=== PATIENT | female | born 2000 | race Caucasian/White ===

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

== ENCOUNTER 2021-02-08 13:06 | Emergency (ER) | payer MEDICAID ==
[~2021-02-08] VITALS: Ht 165.1 cm; Wt 90.9 kg
[2021-02-08] MEDS ORDERED: PRD20T PO (13:26)
--- NOTE | 2021-02-08 13:27 | ED Integumentary General ---
General Chief Complaint: Skin/Wound Problems Stated Complaint: RASH Source: patient Exam Limitations: no limitations History of Present Illness Date Seen by Provider: Feb 08, 2021 Time Seen by Provider: 13:23 Initial Comments To ER with itching to the palms of her hands wrists and soles of her feet as well as to the axilla and groin. This began last night with itching but there was no visible rash until today. No GI symptoms such as nausea diarrhea or abdominal cramping no trouble breathing or cough no wheezing. No history of this. No exposure that is known to any new substance. Timing/Duration: just prior to arrival Severity: moderate Location: extremities Allergies and Home Medications Allergies Coded Allergies: No Known Drug Allergies (Unverified , 11/13/17) Patient Home Medication List Home Medication List Reviewed: Yes Ferrous Sulfate (Iron) 325 Mg Tablet, 325 MG PO DAILY, (Reported) Entered as Reported by: LATRICE GUARDADO on 11/13/17 170 Hydrocodone Bit/Acetaminophen (Lortab 5 Mg Tablet) 1 Tab Tab, 1 TAB PO Q4H PRN for PAIN-MODERATE Prescribed by: INDIRA ESCOTO on 11/16/17 1434 Ibuprofen (Ibu) 600 Mg Tablet, 600 MG PO Q6H PRN for PAIN-MILD Prescribed by: INDIRA ESCOTO on 11/16/17 1434 Prednisone (Prednisone) 20 Mg Tab, 40 MG PO DAILY Prescribed by: FUNMI GONZALES on 02/08/21 1326 Vit W-Ca,Fe,FA(<1 mg) ( Vitamins) 1 Each Tablet, 1 EACH PO DAILY, (Reported) Entered as Reported by: LATRICE GUARDADO on 11/13/17 1701 Review of Systems Review of Systems Constitutional: see HPI EENTM: see HPI Respiratory: no symptoms reported Cardiovascular: no symptoms reported Genitourinary: no symptoms reported Musculoskeletal: no symptoms reported Skin: see HPI Psychiatric/Neurological: No Symptoms Reported Endocrine: No Symptoms Reported Past Jsvulic-Lmpteb-Jwoydw Hx Immunizations Up To Date Tetanus Booster (TDap): Less than 5yrs PED Vaccines UTD: Yes Seasonal Allergies Seasonal Allergies: Yes Past Medical History Surgeries: No Respiratory: No Cardiac: No Neurological: No Female Reproductive Disorders: Denies Sexually Transmitted Disease: No HIV/AIDS: No Genitourinary: No Gastrointestinal: No Musculoskeletal: No Endocrine: No HEENT: No Loss of Vision: Denies Hearing Impairment: Denies Cancer: No Psychosocial: No Integumentary: No Blood Disorders: Yes (ANEMIA) Family Medical History Alzheimer's disease MATERNAL GRANDFATHER Dementia MATERNAL GRANDFATHER Physical Exam Vital Signs Capillary Refill : General Appearance: WD/WN, no apparent distress HEENT: PERRL/EOMI, normal ENT inspection, TMs normal, pharynx normal Neck: non-tender, full range of motion Respiratory: normal breath sounds, no respiratory distress, no accessory muscle use Gastrointestinal: normal bowel sounds, no pulsatile mass Neurologic/Psychiatric: alert, normal mood/affect, oriented x 3 Skin: normal color, warm/dry, other (urticarial rash to the axilla, erythema to the palms, wheals to the volar wrists) Skin Problem Character: other Progress/Results/Core Measures Results/Orders My Orders Orders - FUNMI GONZALES APRN Diphenhydramine Tablet (Benadryl Tablet) (02/08/21 13:30) Famotidine Tablet (Pepcid Tablet) (02/08/21 13:30) Departure Impression Primary Impression: Urticaria Disposition: HOME, SELF-CARE Condition: Stable Departure-Patient Inst. Decision time for Depature: 13:25 Referrals: [facility] [place] Primary Care Physician MARLENY PHELPS (Family) Primary Care Physician Patient Instructions: Eda (ERIN) Add. Discharge Instructions: 1. Take 1 Benadryl tablet every 4-6 hours for itching. Return to ER for any concerns. Take the steroids as directed. All discharge instructions reviewed with patient and/or family. Voiced understanding. Scripts Prednisone (Prednisone) 20 Mg Tab 40 MG PO DAILY, #6 TAB 0 Refills Prov: FUNMI GONZALES APRN 02/08/21 FUNMI GONZALES APRN Feb 08, 2021 13:27
[2021-02-08] MEDS ORDERED: diphenhydrAMINE 25 MG TAB (BENADRYL) PO ONE (13:30)
[2021-02-08] MEDS ORDERED: FAMOTIDINE 20 MG (PEPCID) TABLET PO ONE (13:30)
[2021-02-08 13:38] VITALS: BP 128/87
== END 2021-02-08 13:38 | disposition home or self-care (01) ==
LOC: EDUNIT# 13:06 → ER 13:08
DX: L50.9 Urticaria, unspecified (principal)
CPT/HCPCS: 99283

== ENCOUNTER 2022-07-27 00:47 | Inpatient (IN) | payer MEDICAID ==
[~2022-07-27] VITALS: Ht 152 cm; Wt 100.7 kg
[2022-07-27] VITALS (56 sets, daily range): BP systolic 89–141; BP diastolic 51–87
[~2022-07-27 00:47] MED LIST changes: +PRD20T PO
[2022-07-27] MEDS ORDERED: D5 LR IV SOLUTION 1,000 ML IV ONE (01:30)
[2022-07-27] MEDS ORDERED: MINERAL OIL 30 ML UDC TOP PRN (01:30)
[2022-07-27 01:33] LABS: BASOPHILS % (AUTO) 0 % (0-10); EOSINOPHILS # (AUTO) 0.1 10^3/uL (0.0-0.3); EOSINOPHILS % (AUTO) 1 % (0-10); HEMATOCRIT 37 % (35-52); HEMOGLOBIN 12.3 g/dL (11.5-16.0); LYMPHOCYTES # (AUTO) 2.1 10^3/uL (1.0-4.0); LYMPHOCYTES % (AUTO) 18 % (12-44); MEAN CORPUSCULAR HEMOGLOBIN 28 pg (25-34); MEAN CORPUSCULAR HGB CONC 33 g/dL (32-36); MEAN CORPUSCULAR VOLUME 84 fL (80-99); MEAN PLATELET VOLUME 10.5 fL (9.0-12.2); MONOCYTES # (AUTO) 0.9 10^3/uL (0.0-1.0); MONOCYTES % (AUTO) 8 % (0-12); NEUTROPHILS # (AUTO) 8.4 10^3/uL (1.8-7.8); NEUTROPHILS % (AUTO) 73 % (42-75); PLATELET COUNT 259 10^3/uL (130-400); WHITE BLOOD COUNT 11.6 10^3/uL (4.3-11.0)
[2022-07-27] MEDS: D5 LR IV SOLUTION 1,000 ML IV SCH ×2 (01:36→09:30)
[2022-07-27] MEDS ORDERED: fentaNYL 2 mcg/ml BUPIVA 0.125 100 ML ONE (03:06)
[2022-07-27] MEDS ORDERED: fentaNYL 2 mcg/ml BUPIVA 0.125 100 ML EPI SCH (04:15)
[2022-07-27] MEDS ORDERED: NALOXONE 0.4 MG/ML 1 ML (NARCAN) VIAL IV PRN ×2 (04:15)
[2022-07-27] MEDS ORDERED: LACTATED RINGERS 1,000 ML IV SCH (04:15)
[2022-07-27] MEDS ORDERED: METOCLOPRAMIDE INJ 10 MG/2 ML (REGLAN) IV PRN (04:15)
[2022-07-27] MEDS ORDERED: diphenhydrAMINE 50 MG/ML INJ (BENADRYL) IV PRN (04:15)
[2022-07-27] MEDS ORDERED: ONDANSETRON 4 MG/2 ML (SDV) Z0FRAN IV PRN (04:15)
--- NOTE | 2022-07-27 05:57 | History & Physical-OB/GYN ---
CORETTA YOUNG 07/27/22 0557: OB - Chief Complaint & HPI Date/Time Date of Admission: Date of Admission: Jul 27, 2022 at 01:24 Date seen by a Provider: Jul 27, 2022 Time Seen by a Provider: 06:00 Chief Complaint/History OB-Reason for Admission/Chief: Onset of Labor Hx : 2 Hx Para: 1 Expected Date of Delivery: Jul 26, 2022 Gestational Age in Weeks: 40 Gestational Age in Days: 1 History of Labs O+ Ab neg GBS neg RI G/C neg HIV NR Trichomonas neg HepB sAg NR RPR NR BV neg CMP and bile acids WNL - drawn when pt was 30.4wga due to RUQ pain Allergies and Home Medications Allergies Coded Allergies: No Known Drug Allergies (Unverified , 11/13/17) Patient Home Medication List Home Medication List Reviewed: Yes Ferrous Sulfate (Iron) 325 Mg Tablet, 325 MG PO DAILY, (Reported) Entered as Reported by: LATRICE GUARDADO on 11/13/17 170 Hydrocodone Bit/Acetaminophen (Lortab 5 Mg Tablet) 1 Tab Tab, 1 TAB PO Q4H PRN for PAIN-MODERATE Prescribed by: INDIRA ESCOTO on 11/16/17 1434 Ibuprofen (Ibu) 600 Mg Tablet, 600 MG PO Q6H PRN for PAIN-MILD Prescribed by: INDIRA ESCOTO on 11/16/17 1434 Prednisone (Prednisone) 20 Mg Tab, 40 MG PO DAILY Prescribed by: FUNMI GONZALES on 02/08/21 1326 Vit W-Ca,Fe,FA(<1 mg) ( Vitamins) 1 Each Tablet, 1 EACH PO DAILY, (Reported) Entered as Reported by: LATRICE GUARDADO on 11/13/17 170 OB - History Hx of Present Care: Yes Ultrasounds: Normal mid trimester US Obstetrical Complications: None Medical Complications: None Information Induced Hypertension: No Maternal Gestational Diabetes: No Hemorrhage: No Obstetrical History Hx : 2 Hx Para: 1 Hx # Term Pregnancies: 1 Hx # Pregnancies: 0 Number of Living Children: 1 Hx Termination: No Hx Multiple Gestation: No Hx Ectopic : No Hx Stillbirth: No Hx Complication: No Hx Induced Hypertens: No Hx Maternal Gestational Diabet: No Hx Hemorrhage: No Delivery History Hx Dystocia: No Hx Forceps Assisted Delivery: No Hx Vacuum Extraction Assisted: No Hx Placenta Abnormality: No Hx Distress: No Hx Large For Gestational Age I: No Hx Small for Gestational Age I: No Hx Section: No Hx Vaginal Delivery Post C-Sec: No Hx Blood Disorders: No Adverse Rxn to Tranfusion: No Patient Past Medical History PMHx: None, denies HTN or asthma Social History/Family History Alcohol Use: Denies Use Smoking Cessation: Never smoker Immunizations Influenza Vaccine Up-to-Date: Yes; Up-to-Date First/Initial COVID19 Vaccine: 11/08/2020 Second COVID19 Vaccination: 12/04/2020 Hepatitis A: Yes Hepatitis B: Yes Tetanus Booster (TDap): Less than 5yrs Rubella: immune RPR/VDRL: Negative GBS Status: Negative HBsAG: Negative OB - Admission Exam Physical Exam Vitals: Vital Signs 07/27/22 05:07 Temp 36.7 Pulse 65 Resp 18 B/P (MAP) 110/52 (71) Pulse Ox 97 O2 Delivery Room Air Abdomen: Gravid Extremities: Normal Cervical Dilatation: 7cm Effacement: 100% Station: -2 Membranes: Ruptured Amniotic Fluid: Clear Heart Rate: 140's Accelerations: Accelerations Present Decelerations: Late Decelarations (one possible late deceleration while pt was laying on R side with peanut ball. Pt was immediately turned and deceleration resolved) Animal Sticker Variability: Average (6-25) Cheatham Scoring Tool (Modified) Dilation (cm): >5cm (3) Effacement (%): 80-100% (3) Descent/Station: -2 (1) Cervix Consistency: Soft (2) Cervix Position: Anterior (2) Add 1 point for: Each previous vaginal delivery (1) Subtract 1 point for: Postdate (-1) Labs Laboratory Tests Test 07/27/22 01:20 Range/Units White Blood Count 11.6 H 4.3-11.0 10^3/uL Red Blood Count 4.40 3.80-5.11 10^6/uL Hemoglobin 12.3 11.5-16.0 g/dL Hematocrit 37 35-52 % Mean Corpuscular Volume 84 80-99 fL Mean Corpuscular Hemoglobin 28 25-34 pg Mean Corpuscular Hemoglobin Concent 33 32-36 g/dL Red Cell Distribution Width 14.6 H 10.0-14.5 % Platelet Count 259 130-400 10^3/uL Mean Platelet Volume 10.5 9.0-12.2 fL Immature Granulocyte % (Auto) 0 % Neutrophils (%) (Auto) 73 42-75 % Lymphocytes (%) (Auto) 18 12-44 % Monocytes (%) (Auto) 8 0-12 % Eosinophils (%) (Auto) 1 0-10 % Basophils (%) (Auto) 0 0-10 % Neutrophils # (Auto) 8.4 H 1.8-7.8 10^3/uL Lymphocytes # (Auto) 2.1 1.0-4.0 10^3/uL Monocytes # (Auto) 0.9 0.0-1.0 10^3/uL Eosinophils # (Auto) 0.1 0.0-0.3 10^3/uL Basophils # (Auto) 0.0 0.0-0.1 10^3/uL Immature Granulocyte # (Auto) 0.0 0.0-0.1 10^3/uL OB - Assessment/Plan/Diagnosis Assessment Assessment: active labor Admission Dx Allison Horn is a 22 y/o , GA 40.1 who presents with SROM and onset of labor. GBS neg Admission Status: Inpatient Order (span 2 midnights) Reason for Inpatient Admission: Allison Horn is a 22 y/o , GA 40.1 who presents with SROM and onset of labor. GBS neg Plan Plan: Expectant Management Problems: (1) Spontaneous rupture of amniotic membranes Assessment & Plan: -Expectant management, fluid is clear (2) 40 weeks gestation of Assessment & Plan: Allison Horn is a 22 y/o , GA 40.1 who presents with SROM and onset of labor. GBS neg. -Expectant management -LR/D5 runnings at 125ml/hr -Epidural for pain management CHARBEL SCHMITZ MD 07/27/22 0800: Allergies and Home Medications Allergies Coded Allergies: No Known Drug Allergies (Unverified , 11/13/17) Patient Home Medication List Ferrous Sulfate (Iron) 325 Mg Tablet, 325 MG PO DAILY, (Reported) Entered as Reported by: LATRICE GUARDADO on 11/13/17 1701 Hydrocodone Bit/Acetaminophen (Lortab 5 Mg Tablet) 1 Tab Tab, 1 TAB PO Q4H PRN for PAIN-MODERATE Prescribed by: INDIRA ESCOTO on 11/16/17 1434 Ibuprofen (Ibu) 600 Mg Tablet, 600 MG PO Q6H PRN for PAIN-MILD Prescribed by: INDIRA ESCOTO on 11/16/17 1434 Prednisone (Prednisone) 20 Mg Tab, 40 MG PO DAILY Prescribed by: FUNMI GONZALES on 02/08/21 1326 Vit W-Ca,Fe,FA(<1 mg) ( Vitamins) 1 Each Tablet, 1 EACH PO DAILY, (Reported) Entered as Reported by: LATRICE GUARDADO on 11/13/171700 Supervisory-Addendum Brief Verification & Attestation Participated in pt care: history, MDM, physical Personally performed: exam, history, MDM, supervision of care Care discussed with: Medical Student Procedures: n/a I personally performed or re-performed the history, physical exam and treatment for the E/M. I discussed the case with the Medical Student, and concur with the Medical Student documentation of history, physical exam and treatment plan unless otherwise noted. Pt had a prolonged decel at about 6:50 am with a stephanie about 65, lasted for approximately 4 minutes. Recovered to baseline around 120- 130 with moderate variability and accelerations immediately after and has not had persistent decelerations since that time. Nearing delivery, will monitor closely. CORETTA YOUNG Jul 27, 2022 05:57 CHARBEL SCHMITZ MD Jul 27, 2022 08:00
[2022-07-27] MEDS ORDERED: CATHETER FLUSH 10 ML SYR IV SCH (06:00)
[2022-07-27] MEDS ORDERED: OXYTOCIN PRE-MIX DRIP 500 ML IV ONE (07:12)
--- NOTE | 2022-07-27 07:33 | Labor Progress Note ---
CORETTA YOUNG 07/27/22 0733: Labor Progress Note Labor Progress Note Date Seen by Provider: Jul 27, 2022 Time Seen by Provider: 07:20 Subjective: Pt denies complaints. Objective: Cervical exam: Consistency: soft Position: anterior Presentation: vertex heart tones: 140s beats per minute, moderate variability, accelerations present, variable decelerations Tocometer: 2 ctx/10 minutes Assessment/Plan: Allison Horn is a 22 y/o , 40.1 wga, GBS neg CEFM/TOCO Pt placed in high fowlers Anesthesia: epidural Anticipate vaginal delivery. Vitals - Labs Vital Signs - I&O Vital Signs Date Time Temp Pulse Resp B/P (MAP) Pulse Ox O2 Delivery O2 Flow Rate FiO2 07/27/22 06:45 75 18 98/57 (71) 96 Room Air 07/27/22 06:30 72 18 95/53 (67) 96 Room Air 07/27/22 06:15 77 18 110/57 (74) 98 Room Air 07/27/22 06:00 72 18 106/57 (73) 98 Room Air 07/27/22 05:45 72 18 96/54 (68) 97 Room Air 07/27/22 05:30 68 18 100/56 (71) 97 Room Air 07/27/22 05:15 70 18 104/56 (72) 99 Room Air 07/27/22 05:07 36.7 65 18 110/52 (71) 97 Room Air 07/27/22 05:02 98 18 111/53 (72) 95 Room Air 07/27/22 04:57 75 18 103/51 (68) 98 Room Air 07/27/22 04:52 74 18 95/54 (68) 97 Room Air 07/27/22 04:47 73 18 94/53 (67) 99 Room Air 07/27/22 04:42 75 18 123/53 (76) 99 Room Air 07/27/22 04:37 96 18 97/52 (67) 98 Room Air 07/27/22 04:32 76 18 110/58 (75) 98 Room Air 07/27/22 04:27 81 18 117/57 (77) 98 Room Air 07/27/22 04:22 76 18 116/59 (78) 98 Room Air 07/27/22 04:18 70 18 117/59 (78) 98 Room Air 07/27/22 04:16 84 18 98 Room Air 07/27/22 04:12 99 18 96 Room Air 07/27/22 04:10 80 18 116/61 (79) 96 Room Air 07/27/22 04:07 93 18 128/73 (91) 98 Room Air 07/27/22 04:04 93 18 130/70 (90) 98 Room Air 07/27/22 04:01 97 18 141/73 (95) 98 Room Air 07/27/22 03:58 88 18 132/70 (90) 97 Room Air 07/27/22 03:55 93 18 129/86 (100) 97 Room Air 07/27/22 03:08 36.9 81 18 110/67 (81) Room Air 07/27/22 01:08 36.9 74 18 98 Room Air 07/27/22 01:08 36.9 74 18 115/59 (77) 98 Room Air Labs Laboratory Tests 07/27/22 01:20: White Blood Count 11.6H, Red Blood Count 4.40, Hemoglobin 12.3, Hematocrit 37, Mean Corpuscular Volume 84, Mean Corpuscular Hemoglobin 28, Mean Corpuscular Hemoglobin Concent 33, Red Cell Distribution Width 14.6H, Platelet Count 259, Mean Platelet Volume 10.5, Immature Granulocyte % (Auto) 0, Neutrophils (%) (Auto) 73, Lymphocytes (%) (Auto) 18, Monocytes (%) (Auto) 8, Eosinophils (%) (Auto) 1, Basophils (%) (Auto) 0, Neutrophils # (Auto) 8.4H, Lymphocytes # (Auto) 2.1, Monocytes # (Auto) 0.9, Eosinophils # (Auto) 0.1, Basophils # (Auto) 0.0, Immature Granulocyte # (Auto) 0.0 CHARBEL SCHMITZ MD 07/27/22 0745: Labor Progress Note Labor Progress Note Date Seen by Provider: Jul 27, 2022 Time Seen by Provider: 07:15 I personally performed or re-performed the history, physical exam and treatment for the E/M. I discussed the case with the Medical Student, and concur with the Medical Student documentation of history, physical exam and treatment plan unless otherwise noted. CORETTA YOUNG Jul 27, 2022 07:33 CHARBEL SCHMITZ MD Jul 27, 2022 07:45
[2022-07-27] MEDS ORDERED: LIDOCAINE/EPI 2% 1:200,00 (XYLOCAINE) 20 ML VIAL ONE (11:33)
--- NOTE | 2022-07-27 12:07 | OB Labor & Delivery Record ---
CORETTA YOUNG 07/27/22 1207: Vag Delivery Note Vag Delivery Note Date of Delivery: 07/27/22 Preoperative Diagnosis: Allison Horn is a 22 Y/O G2 now P2002, GA 40.1, GBS neg Postoperative Diagnosis: Same Surgeon: Dr. Schmitz Wheat Buyer: Coretta Young, MS4 Anesthesia: epidural Delivery Type: Findings: Viable male , apgars 8, 9, weight 7lbs 0oz Lacerations: second degree perineal laceration Intact placenta with 3 vessel cord. No nuchal cord, body cord or shoulder dystocia Estimated Blood Loss: 100 ml Complications: none Condition: Stable Description of Procedure: The patient is a 22 year old female who presented with SROM and onset of labor. She was admitted and informed consent was obtained. Her labor course was remarkable occasional variable decelerations. She progressed to complete dilatation and began to push. She was then set up for delivery. During the second phase of labor there was a period of 10 minute intermittent bradycardia with difficulty tracing FHT. Vacuum was prepared for use however infant was delivered shortly after. The 's head was delivered atraumatically in the FABRIZIO position. The shoulders and remainder of the infant's body were then delivered without difficulty. Upon delivery, the was vigorous and placed on maternal chest and the mouth and nares were bulb suctioned. After a delay cord was doubly clamped and cut and the remained on maternal chest. An intact placenta with 3-vessel cord delivered via Jeffery and there was found to be minimal bleeding.~ Vigorous fundal massage was performed and the fundus was found to be firm. IV oxytocin was given. Examination of the vagina and perineum revealed a second degree perineal laceration repaired in the usual fashion with 3-0 vicryl rapide suture. Following the repair, sponge, instrument and needle counts were correct. Mom and baby were both in stable condition in the labor suite. Vitals - Labs Vital Signs - I&O Vital Signs Date Time Temp Pulse Resp B/P (MAP) Pulse Ox O2 Delivery O2 Flow Rate FiO2 07/27/22 09:45 80 18 114/56 (75) Room Air 07/27/22 09:30 70 18 105/55 (72) 94 Room Air 07/27/22 09:00 75 18 97/52 (67) 94 Room Air 07/27/22 08:45 36.7 80 18 104/58 (73) 97 Room Air 07/27/22 08:30 68 18 102/59 (73) 95 Room Air 07/27/22 08:15 67 18 111/58 (75) 95 Room Air 07/27/22 08:00 65 18 117/56 (76) 96 Room Air 07/27/22 07:45 93 18 112/64 (80) 95 Room Air 07/27/22 07:30 75 18 107/57 (74) 97 Room Air 07/27/22 07:15 35.5 76 18 108/63 (78) 98 Room Air 07/27/22 07:00 74 18 103/57 (72) 100 Room Air 07/27/22 06:45 75 18 98/57 (71) 96 Room Air 07/27/22 06:30 72 18 95/53 (67) 96 Room Air 07/27/22 06:15 77 18 110/57 (74) 98 Room Air 07/27/22 06:00 72 18 106/57 (73) 98 Room Air 07/27/22 05:45 72 18 96/54 (68) 97 Room Air 07/27/22 05:30 68 18 100/56 (71) 97 Room Air 07/27/22 05:15 70 18 104/56 (72) 99 Room Air 07/27/22 05:07 36.7 65 18 110/52 (71) 97 Room Air 07/27/22 05:02 98 18 111/53 (72) 95 Room Air 07/27/22 04:57 75 18 103/51 (68) 98 Room Air 07/27/22 04:52 74 18 95/54 (68) 97 Room Air 07/27/22 04:47 73 18 94/53 (67) 99 Room Air 07/27/22 04:42 75 18 123/53 (76) 99 Room Air 07/27/22 04:37 96 18 97/52 (67) 98 Room Air 07/27/22 04:32 76 18 110/58 (75) 98 Room Air 07/27/22 04:27 81 18 117/57 (77) 98 Room Air 07/27/22 04:22 76 18 116/59 (78) 98 Room Air 07/27/22 04:18 70 18 117/59 (78) 98 Room Air 07/27/22 04:16 84 18 98 Room Air 07/27/22 04:12 99 18 96 Room Air 07/27/22 04:10 80 18 116/61 (79) 96 Room Air 07/27/22 04:07 93 18 128/73 (91) 98 Room Air 07/27/22 04:04 93 18 130/70 (90) 98 Room Air 07/27/22 04:01 97 18 141/73 (95) 98 Room Air 07/27/22 03:58 88 18 132/70 (90) 97 Room Air 07/27/22 03:55 93 18 129/86 (100) 97 Room Air 07/27/22 03:08 36.9 81 18 110/67 (81) Room Air 07/27/22 01:08 36.9 74 18 98 Room Air 07/27/22 01:08 36.9 74 18 115/59 (77) 98 Room Air Labs Laboratory Tests 07/27/22 01:20: White Blood Count 11.6H, Red Blood Count 4.40, Hemoglobin 12.3, Hematocrit 37, Mean Corpuscular Volume 84, Mean Corpuscular Hemoglobin 28, Mean Corpuscular Hemoglobin Concent 33, Red Cell Distribution Width 14.6H, Platelet Count 259, Mean Platelet Volume 10.5, Immature Granulocyte % (Auto) 0, Neutrophils (%) (Auto) 73, Lymphocytes (%) (Auto) 18, Monocytes (%) (Auto) 8, Eosinophils (%) (Auto) 1, Basophils (%) (Auto) 0, Neutrophils # (Auto) 8.4H, Lymphocytes # (Auto) 2.1, Monocytes # (Auto) 0.9, Eosinophils # (Auto) 0.1, Basophils # (Auto) 0.0, Immature Granulocyte # (Auto) 0.0 CHARBEL SCHMITZ MD 07/28/22 1007: Supervisory-Addendum Brief Supervisory Addendum I personally performed this procedure with OMS4 Coretta Young. I concur with the Medical Student documentation. CORETTA YOUNG Jul 27, 2022 12:07 CHARBEL SCHMITZ MD Jul 28, 2022 10:07
[2022-07-27] MEDS ORDERED: TETANUS,DIPTH,PERTUSS P/F (BOOSTRIX) 0.5 ML VIAL IM ONE (12:15)
[2022-07-27] MEDS ORDERED: BENZOCAINE/MENTHOL (DERMOPLAST) 56 ML CAN TP PRN (12:15)
[2022-07-27] MEDS ORDERED: WITCH HAZEL(TUCKS) 40 EA JAR TOP PRN (12:15)
[2022-07-27] MEDS ORDERED: OXYTOCIN PRE-MIX DRIP 500 ML IV SCH (12:15)
[2022-07-27] MEDS: CATHETER FLUSH 10 ML SYR IV SCH ×2 (14:00→22:00)
[2022-07-27] MEDS: IBUPROFEN 600 MG (MOTRIN) TAB PO SCH ×2 (14:12→21:00)
[2022-07-27] MEDS: DOCUSATE SODIUM 100 MG (COLACE) CAP PO SCH (21:00)
[2022-07-28 00:41] VITALS: BP 114/72
[2022-07-28] MEDS ORDERED: ACETAMINOPHEN 500 MG TAB (TYLENOL) PO PRN (00:45)
[2022-07-28 03:44] VITALS: BP 104/70
[2022-07-28] MEDS: IBUPROFEN 600 MG (MOTRIN) TAB PO SCH ×2 (03:44→09:08)
[2022-07-28 06:35] LABS: BASOPHILS % (AUTO) 0 % (0-10); EOSINOPHILS # (AUTO) 0.1 10^3/uL (0.0-0.3); EOSINOPHILS % (AUTO) 1 % (0-10); HEMATOCRIT 34 % (35-52); HEMOGLOBIN 11.2 g/dL (11.5-16.0); LYMPHOCYTES # (AUTO) 2.5 10^3/uL (1.0-4.0); LYMPHOCYTES % (AUTO) 25 % (12-44); MEAN CORPUSCULAR HEMOGLOBIN 28 pg (25-34); MEAN CORPUSCULAR HGB CONC 33 g/dL (32-36); MEAN CORPUSCULAR VOLUME 86 fL (80-99); MEAN PLATELET VOLUME 10.3 fL (9.0-12.2); MONOCYTES # (AUTO) 0.8 10^3/uL (0.0-1.0); MONOCYTES % (AUTO) 8 % (0-12); NEUTROPHILS # (AUTO) 6.4 10^3/uL (1.8-7.8); NEUTROPHILS % (AUTO) 65 % (42-75); PLATELET COUNT 185 10^3/uL (130-400); WHITE BLOOD COUNT 9.9 10^3/uL (4.3-11.0)
--- NOTE | 2022-07-28 08:25 | Discharge Summary ---
Diagnosis/Chief Complaint Date of Admission Jul 27, 2022 at 01:24 Date of Discharge July 28, 2022 Admission Diagnosis Admission Diagnosis 1. Intrauterine at 40 weeks gestation Discharge Diagnosis 1. Intrauterine at 40 weeks gestation Chief Complaint/HPI Chief Complaint/HPI 22-year-old 2 now living 2 who initially presented to labor and delivery at 40 weeks 1 day gestation Discharge Summary-OBS Procedures 1. Epidural per anesthesia 2. Spontaneous vaginal delivery Discharge Physical Examination Allergies: Coded Allergies: No Known Drug Allergies (Unverified , 11/13/17) Vitals & I&Os Vital Sign - Last 12Hours Date Time Temp Pulse Resp B/P (MAP) Pulse Ox O2 Delivery O2 Flow Rate FiO2 07/28/22 03:44 36.0 67 18 104/70 (81) 97 Room Air Hospital Course Labs Laboratory Tests 07/28/22 06:14: White Blood Count 9.9, Red Blood Count 3.98, Hemoglobin 11.2L, Hematocrit 34L, Mean Corpuscular Volume 86, Mean Corpuscular Hemoglobin 28, Mean Corpuscular Hemoglobin Concent 33, Red Cell Distribution Width 14.8H, Platelet Count 185, Mean Platelet Volume 10.3, Immature Granulocyte % (Auto) 1, Neutrophils (%) (Auto) 65, Lymphocytes (%) (Auto) 25, Monocytes (%) (Auto) 8, Eosinophils (%) (Auto) 1, Basophils (%) (Auto) 0, Neutrophils # (Auto) 6.4, Lymphocytes # (Auto) 2.5, Monocytes # (Auto) 0.8, Eosinophils # (Auto) 0.1, Basophils # (Auto) 0.0, Immature Granulocyte # (Auto) 0.1 Discharge Instructions to patient/family Please see electronic discharge instructions given to patient. Discharge Medications Reviewed and agree with Discharge Medication list on patient's Discharge Instruction sheet ILIANA SHERMAN MD Jul 28, 2022 08:25
--- NOTE | 2022-07-28 08:27 | Discharge Inst-Women's Service ---
Discharge Inst-Women's Serv Depart Medication/Instructions Instructions take previous medications as instructed. Ibuprofen 600 mg if needed every 6 hours for cramps. Problems Reviewed?: Yes Consults/Follow Up Additional Follow Up: Yes (Dr. David in 6 weeks) Activity Driving Instructions: No Driving for 1 Week Nothing Inside Vagina: No [place] (For 6 weeks) Diet Discharge Diet: Regular Diet Return to The Hospital For: As below Symptoms to Report to : Bleeding Excessive, Pain Increased, Fever Over 101 Degrees F, Vaginal Discharge Foul For Any Problems or Questions: Contact Your Physician ILIANA SHERMAN MD Jul 28, 2022 08:27
[2022-07-28 09:00] VITALS: BP 110/54
[2022-07-28] MEDS: DOCUSATE SODIUM 100 MG (COLACE) CAP PO SCH (09:08)
--- NOTE | 2022-07-28 11:40 | Anesthesia-Regional Post-Op ---
Regional Patient Condition Mental Status: Alert, Oriented x3 Circulation: Same as Pre-Op Headache: Absent Sensation: Full Recovery Motor Block: Absent Post Op Complications Complications None Follow Up Care/Instructions Patient Instructions None needed. Anesthesia/Patient Condition Patient is doing well, no complaints, stable vital signs, no apparent adverse anesthesia problems. No complications reported per nursing. ANITHA PADILLA CRNA Jul 28, 2022 11:40
[2022-07-28 14:40] VITALS: BP 110/54
== END 2022-07-28 14:40 | disposition home or self-care (01) | DRG 807 ==
LOC: LDRP 00:47 → WSo 00:47 → LDRP 01:24
PROVIDERS: ADMIT Family Medicine; ATTEND Family Medicine
PROC: 10E0XZZ Delivery of Products of Conception, External Approach (ICD-10-PCS; principal; 2022-07-27)
PROC: 0KQM0ZZ Repair Perineum Muscle, Open Approach (ICD-10-PCS; 2022-07-27)
PROC: 4A1HXFZ Monitoring of Products of Conception, Cardiac Rhythm, External Approach (ICD-10-PCS; 2022-07-27)
DX: O48.0 Post-term pregnancy (principal); Z37.0 Single live birth; Z3A.40 40 weeks gestation of pregnancy; O76 Abnormality in fetal heart rate and rhythm complicating labor and delivery; O70.1 Second degree perineal laceration during delivery
CPT/HCPCS: 36415; 85025; 86780; 86850; 86900; 86901; 99212